=== PATIENT | female | born 1970 | race Caucasian/White ===

== ENCOUNTER 2017-12-16 08:56 | Inpatient (IN) | payer SELFPAY ==
[~2017-12-16] VITALS: Ht 162.6 cm; Wt 64.4 kg
[~2017-12-16 08:56] MED LIST: ACET-8386 PO; FERR325E14 PO; IBUP-974 PO
[2017-12-16 09:04] VITALS: BP 122/64
[2017-12-16] MEDS ORDERED: NACL 0.9% 1,000 ML IV SCH (09:18)
[2017-12-16] MEDS ORDERED: KETOROLAC 30 MG/ML VIAL IVP ONE (09:20)
[2017-12-16] MEDS ORDERED: GLYCOPYRROLATE 0.2 MG/ML VIAL IV ONE (09:20)
[2017-12-16 09:43] LABS: APPEARANCE,URINE HAZY (CLEAR); BILIRUBIN,URINE NEGATIVE (NEGATIVE); BLOOD, URINE 3+ (NEGATIVE); COLOR,URINE YELLOW (YELLOW); LEUKOCYTE ESTERASE ,URINE 1+ (NEGATIVE); NITRITE, URINE NEGATIVE (NEGATIVE); UGLUCOSE NEGATIVE (NEGATIVE)
[2017-12-16 09:45] LABS: BASOPHILS # (AUTO) 0.1 K/uL (0.00-0.22); BASOPHILS % (AUTO) 1.2 % (0.0-2.0); EOSINOPHILS # (AUTO) 0.2 K/uL (0-0.4); EOSINOPHILS % (AUTO) 3.6 % (0.0-4.0); HEMATOCRIT 41.9 % (36-48); HEMOGLOBIN 13.7 g/dL (12.0-16.0); LYMPHOCYTES % (AUTO) 33.2 % (20.5-51.1); MEAN CORPUSCULAR HEMOGLOBIN 28 pg (27-31); MEAN CORPUSCULAR HGB CONC 33 g/dL (33-37); MEAN CORPUSCULAR VOLUME 84.3 fL (80-94); MONOCYTES # (AUTO) 0.4 K/uL (0.8-1.0); MONOCYTES % (AUTO) 7.1 % (1.7-9.3); NEUTROPHILS # (AUTO) 3.3 K/uL (1.8-7.7); NEUTROPHILS % (AUTO) 54.9 % (42.2-75.2); PLATELET COUNT (AUTO) 234 K/uL (140-450); RED BLOOD CELL COUNT(AUTO) 4.98 MIL/uL (4.20-5.40); RED CELL DISTRIBUTION WIDTH 16.2 % (11.6-13.7)
[2017-12-16 09:55] LABS: RBC,URINE >100 /HPF (0-5)
[2017-12-16 10:11] LABS: ALBUMIN 3.3 g/dL (3.4-5.0); ANION GAP 8.1 (8-16); CARBON DIOXIDE 26.9 mmol/L (21-32); CREATININE 0.6 mg/dL (0.6-1.3); TOTAL BILIRUBIN 0.3 mg/dL (0.0-1.0)
[2017-12-16] MEDS ORDERED: LEVOFLOXACIN 500 MG/D5W PREMIX 100 ML IV ONE (10:45)
[2017-12-16] MEDS ORDERED: LORazepam 2 MG/ML VIAL IM/IVP PRN (10:55)
[2017-12-16] MEDS ORDERED: DOCUSATE SODIUM 100 MG GELCAP PO PRN (10:55)
[2017-12-16] MEDS ORDERED: MORPHINE SULFATE 2 MG/ML SYR IVP PRN (10:55)
[2017-12-16] MEDS ORDERED: ONDANSETRON 4 MG/2 ML VIAL IM/IVP PRN (10:55)
[2017-12-16] MEDS ORDERED: ZOLPIDEM 5 MG TAB PO PRN (10:55)
[2017-12-16] MEDS ORDERED: HYDROcodone/APAP 5/325 MG 1 TAB TAB PO PRN (10:55)
[2017-12-16] MEDS ORDERED: ACETAMINOPHEN 325 MG TAB PO PRN (10:55)
[2017-12-16] MEDS: NACL 0.9% 1,000 ML IV SCH ×3 (11:44→23:32)
[2017-12-16 11:55] LABS: PROTHROMBIN TIME 10.6 secs (10.8-13.4)
[2017-12-16 12:13] LABS: CHOL/HDL RATIO 3.3 (1-4.5); PHOSPHORUS 3.4 mg/dL (2.5-4.9); THYROID STIMULATING HORMONE 1.63 uIU/mL (0.34-3.74)
[2017-12-16 12:57] VITALS: BP 138/72
[2017-12-16 16:00] VITALS: BP 134/71
[2017-12-16 20:00] VITALS: BP 131/78
[2017-12-17 00:20] VITALS: BP 128/76
[2017-12-17 04:45] VITALS: BP 125/71
[2017-12-17 07:09] LABS: BASOPHILS # (AUTO) 0.1 K/uL (0.00-0.22); BASOPHILS % (AUTO) 1.1 % (0.0-2.0); EOSINOPHILS # (AUTO) 0.1 K/uL (0-0.4); EOSINOPHILS % (AUTO) 1.8 % (0.0-4.0); HEMOGLOBIN 13.4 g/dL (12.0-16.0); LYMPHOCYTES % (AUTO) 29.8 % (20.5-51.1); MEAN CORPUSCULAR HEMOGLOBIN 27 pg (27-31); MEAN CORPUSCULAR HGB CONC 32 g/dL (33-37); MEAN CORPUSCULAR VOLUME 84.7 fL (80-94); MONOCYTES # (AUTO) 0.4 K/uL (0.8-1.0); MONOCYTES % (AUTO) 6.6 % (1.7-9.3); NEUTROPHILS # (AUTO) 4.1 K/uL (1.8-7.7); NEUTROPHILS % (AUTO) 60.7 % (42.2-75.2); PLATELET COUNT (AUTO) 232 K/uL (140-450); RED BLOOD CELL COUNT(AUTO) 4.95 MIL/uL (4.20-5.40); RED CELL DISTRIBUTION WIDTH 16.1 % (11.6-13.7); WHITE BLOOD COUNT (AUTO) 6.7 K/uL (4.8-10.8)
[2017-12-17 07:23] LABS: ANION GAP 8.5 (8-16); CARBON DIOXIDE 25.1 mmol/L (21-32); CREATININE 0.5 mg/dL (0.6-1.3); POTASSIUM 3.6 mmol/L (3.5-5.1)
[2017-12-17 07:34] LABS: MAGNESIUM 1.6 mg/dL (1.8-2.4); PHOSPHORUS 2.7 mg/dL (2.5-4.9)
[2017-12-17 08:00] VITALS: BP 144/75
[2017-12-17] MEDS ORDERED: LACTOBACILLUS RHAMNOSUS GG 1 EACH CAP PO SCH ×2 (09:00)
[2017-12-17 12:00] VITALS: BP 129/65
== END 2017-12-17 14:15 | disposition home or self-care (01) | DRG 755 ==
LOC: MED 08:56 → MTU 10:52
PROVIDERS: ADMIT General Practice; ATTEND General Practice
DX: D39.0 Neoplasm of uncertain behavior of uterus (principal); N39.0 Urinary tract infection, site not specified; E44.1 Mild protein-calorie malnutrition; C56.9 Malignant neoplasm of unspecified ovary; K80.20 Calculus of gallbladder without cholecystitis without obstruction; Z90.710 Acquired absence of both cervix and uterus; Z83.2 Family history of diseases of the blood and blood-forming organs and certain disorders involving the immune mechanism; Z68.24 Body mass index [BMI] 24.0-24.9, adult
CPT/HCPCS: 36415; 76700; 76856; 80048; 80053; 81001; 81025; 82150; 83036; 83690; 83735; 84100; 84134; 84443; 84703; 85025; 85610; 85730; 87081; 87086; 96361; 96374; 96375; 99285; J0696; J1885; J1956; J2270; J3490; J7030; J7060; Q0092